=== PATIENT | female | born 1970 | race Caucasian/White ===

== ENCOUNTER → 2016-12-11 | Outpatient (CLI) | payer BC ==
[~2016-12-11] MED LIST: FLUT0.15; SERT50TA PO
--- NOTE | 2016-12-11 15:30 | MAMMOGRAPHY REPORT ---
BILATERAL DIGITAL SCREENING MAMMOGRAM WITH CAD AND TARGETED RIGHT ULTRASOUND: 12/11/2016 CLINICAL HISTORY: Routine screening. Patient has no complaints. Patient initially presented on 11/13/2016 for a screening mammogram. She had a vasovagal episode aft er the right and left CC images were obtained and the MLO views could not be obtained. She returned on 12/11/2016 4 right and left MLO 2-D and tomosynthesis mammograms. TECHNIQUE: Bilateral CC and MLO 2-D and tomosynthesis images were obtained. Current study was also e valuated with a Computer Aided Detection (CAD) system. COMPARISON: Comparison is made to exams dated: 10/21/2015 mammogram, 12/22/2013 mammogram, 12/04/2012 mammogram, 10/11/2011 mammogram - [facility], and 08/24/2008. BREAST COMPOSITION: The tissue of both breasts is heterogeneously dense, which may obscure small mas ses. FINDINGS: There is an oval circumscribed mass in the superior anterior right breast, only seen on the MLO view, measuring 6.9 x 5.9 mm. No associated architectural distortion or microcalcification. No other suspicious mass, architectural distortion or cluster of microcalcifications is seen bilaterall y. The patient was waiting in our department for review of the MLO views given that she already had to r eturn once to complete the exam. For convenience sake, after the images were reviewed targeted ultra sound was performed of the right breast so the patient did not have to return for diagnostic ultrasou nd during a third visit. Targeted ultrasound was performed in the superior right breast. In the 12:00 periareolar axis, there is a benign anechoic simple cyst measuring 4.4 x 4.4 x 5.0 mm. This is likely incidentally identifi ed. Another benign anechoic simple cyst is seen in the 11:00 right breast, 1 cm from the nipple, rajesh suring 6.3 x 4.9 x 6.3 mm. This likely corresponds to the mammographic finding. No other discrete s olid or cystic mass is seen throughout the remainder of the superior right breast on targeted ultraso und. IMPRESSION: ACR BI-RADS CATEGORY 2: BENIGN, TARGETED ULTRASOUND ACR BI-RADS CATEGORY 2: BENIGN There are 2 benign anechoic simple cysts identified in the 11:00 and 12:00 axes of the right breast o n targeted ultrasound. The slightly larger oval anechoic cyst in the 11:00 right breast is thought t o correlate with a newly visualized mammographic mass in the superior anterior breast on the MLO view . These findings are compatible with benign fibrocystic changes. There is no mammographic or target ed sonographic evidence of malignancy. Recommend routine screening in 1 year. These results and recommendations were discussed with the patient at the time of the exam. Approximately 10% of breast cancers are not detected with mammography. A negative mammographic report should not delay biopsy if a clinically suggestive mass is present. Felecia Herrera M.D. ay/:12/11/2016 12:55:45 [employer]: Aliyah FIGUEREDO(Rodrigo)(Dieudonne)([place]), [facility] letter sent: Normal 1/2 BI-RADS Code: ACR BI-RADS Category 2: Benign Ultrasound BI-RADS: ACR BI-RADS Category 2: Benign
== END | disposition home or self-care (01) ==
LOC: C.MAMM 12:07
PROVIDERS: ATTEND Obstetrics & Gynecology
DX: R92.8 Other abnormal and inconclusive findings on diagnostic imaging of breast (principal); N60.11 Diffuse cystic mastopathy of right breast

== ENCOUNTER → 2017-02-27 | Outpatient (CLI) | payer BC ==
[2017-02-27 17:42] LABS: BASO % 1.3 %; BASO ABS # 0.08 K/uL (0-0.2); COMPLETE YES; EOS % 4.2 %; HEMATOCRIT 36.3 % (37-47); IG% 0.2 %; LYMPH % 30.1 %; MEAN CELL VOLUME 89.9 fL (80-100); MEAN CORPUSCULAR HEMOGLOBIN 30.2 pg (25-34); MEAN CORPUSCULAR HGB CONC 33.6 g/dl (32-36); MEAN PLATELET VOLUME 10.6 fL (7.4-10.4); MONO % 8.3 %; NEUT % 55.9 %; PLATELET COUNT 230 K/uL (130-400); RED BLOOD COUNT 4.04 M/uL (4.2-5.4); WHITE BLOOD COUNT 5.99 K/uL (4.8-10.8)
[2017-02-27 18:13] LABS: ALT/SGPT 19 U/L (12-78); BLOOD UREA NITROGEN 17 mg/dl (7-18); CALCIUM 9.2 mg/dl (8.5-10.1); CARBON DIOXIDE 29 mmol/L (21-32); CHLORIDE 102 mmol/L (98-107); CREATININE 0.67 mg/dl (0.60-1.20); GLUCOSE 83 mg/dl (70-99); MAGNESIUM 2.4 mg/dl (1.8-2.4); POTASSIUM 3.3 mmol/L (3.5-5.1); SODIUM 138 mmol/L (136-145)
[2017-02-27 18:23] LABS: ALB/GLOB RATIO 1.1 (0.9-2); ALKALINE PHOSPHATASE 65 U/L (45-117); AST/SGOT 19 U/L (15-37)
[2017-02-27 20:31] LABS: LYME DISEASE AB IGG NEG (NEG); LYME DISEASE AB IGM NEG (NEG)
== END | disposition home or self-care (01) ==
LOC: C.LAB1850 16:29
PROVIDERS: ATTEND Nurse Practitioner Adult Health
DX: R55 Syncope and collapse (principal)

== ENCOUNTER → 2017-03-07 | Outpatient (CLI) | payer BC ==
[2017-03-07 15:20] LABS: POTASSIUM 3.2 mmol/L (3.5-5.1)
[2017-03-07 15:45] LABS: FERRITIN 71.1 ng/ml (8.0-388.0)
== END | disposition home or self-care (01) ==
LOC: C.LAB1850 12:33
PROVIDERS: ATTEND Nurse Practitioner Adult Health
DX: E87.6 Hypokalemia (principal); R71.0 Precipitous drop in hematocrit; Z86.39 Personal history of other endocrine, nutritional and metabolic disease

== ENCOUNTER → 2017-03-07 | Outpatient (CLI) | payer BC ==
--- NOTE | 2017-03-07 12:54 | DIAGNOSTIC IMAGING REPORT ---
BILATERAL CAROTID DOPPLER STUDY HISTORY: R55 Syncope and collapse COMPARISON: None. TECHNIQUE: Real-time, grayscale, and color Doppler sonography of the carotid arteries was performed. Imaging reviewed in the transverse and longitudinal planes. All measurements were calculated based on NASCET criteria. FINDINGS: Antegrade flow is seen in the bilateral vertebral arteries. The brachial pressures are hemodynamically similar. No significant atherosclerotic plaque within the carotid arteries. The peak systolic velocity within the right ICA is 84 cm/s. The right systolic ratio is 0.9. The peak systolic velocity within the left ICA is 92 cm/s. The left systolic ratio is 0.9. IMPRESSION: No hemodynamically significant stenosis seen within the carotid arteries. Electronically signed by: Deonte Bernard M.D. 03/07/2017 12:53 PM Dictated Date/Time: 03/07/2017 12:52 PM
== END | disposition home or self-care (01) ==
LOC: C.ULTR 11:59
PROVIDERS: ATTEND Nurse Practitioner Adult Health
DX: R55 Syncope and collapse (principal)

== ENCOUNTER → 2017-04-02 | Outpatient (CLI) | payer OTHER | END | disposition home or self-care (01) | LOC: C.LAB1850 08:56 | PROVIDERS: ATTEND Nurse Practitioner Adult Health | DX: E87.6 Hypokalemia (principal) ==